=== PATIENT | male | born 1935 | race Caucasian/White ===

== ENCOUNTER 2022-10-23 13:34 | Inpatient (IN) | payer OTHER, MEDICARE, MEDICAID ==
[~2022-10-23] VITALS: Ht 172.7 cm; Wt 48.6 kg
[2022-10-23 14:01] LABS: BASOPHILS % (AUTO) 0.5 % (0-1); EOSINOPHILS % (AUTO) 0.3 % (0-6); HEMATOCRIT 43.1 % (42.0-52.0); HEMOGLOBIN 13.6 g/dl (14.0-17.9); LYMPHOCYTES # (AUTO) 0.9 X10'3 (1.1-4.8); MEAN CORPUSCULAR HEMOGLOBIN 29.2 PG (27.0-31.0); MEAN CORPUSCULAR HGB CONC 31.6 g/dL (33.0-36.5); MEAN CORPUSCULAR VOLUME 92.4 FL (78-98); MEAN PLATELET VOLUME 8.6 FL (7.4-10.4); MONOCYTES # (AUTO) 0.6 X10'3 (0-0.9); MONOCYTES % (AUTO) 8.7 % (2-12); NEUTROPHILS # (AUTO) 4.8 X10'3 (1.8-7.7); NEUTROPHILS % (AUTO) 75.5 % (42-75); PLATELET COUNT 317 X10'3 (140-440); RED BLOOD COUNT 4.67 X10'6 (4.70-6.10); WHITE BLOOD COUNT 6.3 X10'3 (4.5-11.0)
[2022-10-23 14:19] LABS: ALANINE AMINOTRANSFERASE 43 U/L (12-78); ALBUMIN 3.1 G/DL (3.4-5.0); ALBUMIN/GLOBULIN RATIO 0.8 (1.1-1.5); ALKALINE PHOSPHATASE 103 IU/L (46-116); ANION GAP 9 (8-16); ASPARTATE AMINO TRANSFERASE 37 U/L (10-37); BILIRUBIN,TOTAL 0.4 MG/DL (0.1-1.0); BLOOD UREA NITROGEN 33 MG/DL (7-18); CALCIUM 9.3 MG/DL (8.5-10.1); CHLORIDE 103 MMOL/L (99-107); GLUCOSE 150 MG/DL (70-104); POTASSIUM 4.8 MMOL/L (3.5-5.1); SODIUM 139 MMOL/L (135-145); TOTAL CARBON DIOXIDE 27.4 MMOL/L (24-32); TOTAL PROTEIN 6.8 G/DL (6.4-8.2)
[2022-10-23 14:27] LABS: BUN/CREATININE RATIO 28.9 (10.0-20.0); CREATININE 1.14 MG/DL (0.60-1.10); eGFR 61 ML/MIN
[2022-10-23] MEDS ORDERED: furosemide 10 MG/1 ML 10ml inj IV ONE (18:20)
[2022-10-23] MEDS ORDERED: furosemide 20 MG/2 ML vial IV ONE (18:25)
[2022-10-23] MEDS ORDERED: mag hydrox/Alum hydrox/simeth 30ml oral suspension PO PRN (19:55)
[2022-10-23] MEDS ORDERED: acetaminophen 325mg tablet PO PRN ×2 (19:55)
[2022-10-23] MEDS ORDERED: docusate sod 100mg capsule PO PRN (19:55)
[2022-10-23] MEDS ORDERED: PERFLUTREN PROTEIN-A MICROSPHR (Optison) 0.22 MG/ML 3ML VIAL IV ONE (19:55)
[2022-10-23] MEDS ORDERED: potassium Cl 20 mEq SR tablet PO PRN ×2 (19:55)
[2022-10-23] MEDS ORDERED: ondansetron/PF 4mg/2ml inj IV PRN (19:55)
[2022-10-23] MEDS ORDERED: magnesium 4gm in 100ml NS 100 ML IV PRN (19:55)
[2022-10-23] MEDS ORDERED: HYDROcodone/acetaminophen 10/325mg tab PO PRN (19:55)
[2022-10-23] MEDS ORDERED: HYDROcodone/acetaminophen 5mg/325mg tablet PO PRN (19:55)
[2022-10-23] MEDS ORDERED: potassium Cl 40MEQ/1/2NS 520ml 520 ML IV PRN (19:55)
[2022-10-23] MEDS: K and/or MAG REPLACEMENT MC SCH (20:00)
[2022-10-23] MEDS ORDERED: dronabinol 2.5mg capsule PO PRN ×2 (20:25→20:30)
[2022-10-23 20:26] LABS: ABG HCO3 27.3 mmol/L (22.0-26.0); ABG OXYGEN SATURATION 94.8 % (94-97); ABG PCO2 (T) 40.4 mmHg (35.0-48.0); ABG PO2 (T) 77.1 mmHg (75.0-100.0); FCOHb 0.8 % (0.0-3.9); FMetHb 0.3 % (0.0-1.5); FO2Hb 93.8 % (94-97); TOTAL HEMOGLOBIN 13.9 G/dl (14.0-17.9)
[2022-10-23] MEDS: budesonide 0.5mg/2ml UD nebule IH SCH (20:27)
[2022-10-23] MEDS: ipratropium/albuterol 3ml nebule NEB PRN (20:27)
[2022-10-23 20:36] LABS: CLARITY,URINE CLEAR (Clear); COLOR,URINE YELLOW (Yellow); GLUCOSE, URINE NEGATIVE (Neg); KETONES,URINE NEGATIVE (Neg); LEUKOCYTE ESTERASE ,URINE NEGATIVE (Neg); NITRITES, URINE NEGATIVE (Neg); OCCULT BLOOD,URINE NEGATIVE (Neg); PH,URINE 5.5 (4.8-8.0); PROTEIN,URINE NEGATIVE (Neg); UROBILINOGEN,URINE 0.2 E.U/dL (0.2-1.0)
[2022-10-23 20:40] LABS: UA COLLECTION TYPE CLN CATCH MIDSTREAM
[2022-10-23] MEDS ORDERED: PERFLUTREN PROTEIN-A MICROSPHR (Optison) 0.22 MG/ML 3ML VIAL IV PRN (21:15)
[2022-10-23] MEDS: enoxaparin 40mg/0.4ml syringe SQ SCH (21:29)
--- NOTE | 2022-10-23 21:33 | NUR ---
Pt evening meds given. Pt had something to eat. Pt given warm blankets and settled in for the night. Pt with no other needs at this time. Will continue to monitor.
[2022-10-24] MEDS ORDERED: digoxin 250mcg/ml 2ml ampule IV STA (02:29)
[2022-10-24] MEDS ORDERED: metoprolol tartrate 1mg/ml inj IV ONE (03:35)
--- NOTE | 2022-10-24 03:43 | NUR ---
Pt argumentative and refused metoprolol. Hospitalist in room and witnessed interaction. Physician aware pt refused medication.
[2022-10-24] MEDS: furosemide 20 MG/2 ML vial IV SCH ×2 (08:00→20:00)
[2022-10-24] MEDS: K and/or MAG REPLACEMENT MC SCH ×2 (08:00→20:00)
[2022-10-24 08:41] LABS: BASOPHILS # (AUTO) 0.1 X10'3 (0-0.2); EOSINOPHILS % (AUTO) 0.1 % (0-6); HEMATOCRIT 39.7 % (42.0-52.0); HEMOGLOBIN 12.9 g/dl (14.0-17.9); LYMPHOCYTES # (AUTO) 0.8 X10'3 (1.1-4.8); LYMPHOCYTES % (AUTO) 12.5 % (21-51); MEAN CORPUSCULAR HEMOGLOBIN 29.6 PG (27.0-31.0); MEAN CORPUSCULAR HGB CONC 32.5 g/dL (33.0-36.5); MEAN CORPUSCULAR VOLUME 90.9 FL (78-98); MEAN PLATELET VOLUME 8.5 FL (7.4-10.4); MONOCYTES # (AUTO) 0.6 X10'3 (0-0.9); MONOCYTES % (AUTO) 9.7 % (2-12); NEUTROPHILS # (AUTO) 4.6 X10'3 (1.8-7.7); NEUTROPHILS % (AUTO) 76.7 % (42-75); PLATELET COUNT 298 X10'3 (140-440); RED BLOOD COUNT 4.37 X10'6 (4.70-6.10); RED CELL DISTRIBUTION WIDTH 16.6 % (11.5-14.5)
[2022-10-24] MEDS: budesonide 0.5mg/2ml UD nebule IH SCH ×2 (08:46→19:08)
[2022-10-24] MEDS: ipratropium/albuterol 3ml nebule NEB PRN ×2 (08:46→19:08)
[2022-10-24] MEDS ORDERED: furosemide 20 MG/2 ML vial IV ONE ×2 (08:52→21:15)
[2022-10-24 09:03] LABS: ALANINE AMINOTRANSFERASE 41 U/L (12-78); ALBUMIN/GLOBULIN RATIO 0.9 (1.1-1.5); ALKALINE PHOSPHATASE 92 IU/L (46-116); ANION GAP 8 (8-16); ASPARTATE AMINO TRANSFERASE 28 U/L (10-37); BILIRUBIN,TOTAL 0.4 MG/DL (0.1-1.0); BLOOD UREA NITROGEN 39 MG/DL (7-18); BUN/CREATININE RATIO 26.9 (10.0-20.0); CALCIUM 9.1 MG/DL (8.5-10.1); CHLORIDE 104 MMOL/L (99-107); CREATININE 1.45 MG/DL (0.60-1.10); GLUCOSE 113 MG/DL (70-104); MAGNESIUM 2.3 MG/DL (1.5-2.4); POTASSIUM 5.2 MMOL/L (3.5-5.1); SODIUM 141 MMOL/L (135-145); TOTAL CARBON DIOXIDE 28.8 MMOL/L (24-32); TOTAL PROTEIN 6.5 G/DL (6.4-8.2); eGFR 46 ML/MIN
[2022-10-24 10:00] VITALS: BP 101/53
[2022-10-24 10:15] VITALS: BP 98/75
[2022-10-24 10:35] LABS: PLEURAL FLUID PH 7.414 (7.63-7.65)
[2022-10-24 10:36] LABS: BFSOURCE LEFT PLEURAL FLD
[2022-10-24 11:07] LABS: BF RBC COUNT 3350 /CU MM; BF WBC COUNT 1050 /CU MM (0-1000); BFAPPEAR CLOUDY; BFCOLOR YELLOW; BFVOLUME 60 ML
[2022-10-24 11:15] LABS: BF MESOTHELIAL CELLS FEW; LYMPHOCYTES,BODY FLUID 61 %; MONOCYTES,BODY FLUID 6 %; NEUTROPHILS,BODY FLUID 33 %
[2022-10-24 11:49] LABS: GLUCOSE,BODY FLUID 148 MG/DL; LDH,BODY FLUID 95 U/L; TOTAL PROTEIN,BODY FLUID 2.5 G/DL
[2022-10-24] MEDS ORDERED: ASPI-1265 PO (12:25)
[2022-10-24] MEDS ORDERED: CLOP75TA34 PO (12:25)
[2022-10-24] MEDS ORDERED: ATOR40TA PO (12:25)
[2022-10-24] MEDS ORDERED: FLUT16SP2 BOTHNARES (12:25)
[2022-10-24] MEDS ORDERED: FURO-150 PO (12:25)
[2022-10-24] MEDS ORDERED: CARV3.122 PO (12:25)
[2022-10-24] MEDS ORDERED: SACU1TAB PO (12:25)
[2022-10-24] MEDS ORDERED: OXYM30SP67 (12:25)
[2022-10-24] MEDS ORDERED: TIOT18CA3 PO (12:25)
[2022-10-24] MEDS ORDERED: SPIR25TA5 PO (12:25)
[2022-10-24] MEDS ORDERED: EMPA25TA PEG (12:25)
[2022-10-24] MEDS ORDERED: ALBU90AE INH (12:25)
[2022-10-24] MEDS ORDERED: MIRT-116 PO (12:25)
--- NOTE | 2022-10-24 12:35 | NUR ---
attempted to call report, nurse is unavailable, request that this RN call back in 5 minutes
[2022-10-24 13:15] VITALS: BP 110/74
[2022-10-24 18:00] VITALS: BP 103/74
--- NOTE | 2022-10-24 18:00 | NUR ---
Patient in room PCU 3025. I have received report from Jessica ANGEL and had the opportunity to ask questions and assume patient care.
[2022-10-24] MEDS: enoxaparin 40mg/0.4ml syringe SQ SCH (20:58)
[2022-10-24 22:00] VITALS: BP 111/72
--- NOTE | 2022-10-24 23:09 | NUR ---
PAGED DR. BARFIELD FOR SHI, JEANA HAS BEEN TACHYCARDIC FOR AN HOUR SO FAR, IN 140s. COULD WE HAVE SOMETHING FOR THAT? THANK YOU [facility] [id number] DR. BARFIELD ORDERED METOPTOLOL 5 MG IV
[2022-10-24] MEDS ORDERED: metoprolol tartrate 1mg/ml inj IV PRN (23:15)
--- NOTE | 2022-10-24 23:33 | NUR ---
PT IS STILL TACHYCARDIC @ >140 BUT HE IS REFUSING TO TAKE THE MEDICATION. I EXPLAINED THE BENEFITS OF TAKING MEDICATION, BUT PT IS NOT READY TO TAKE ANY HEART MEDICATION.
[2022-10-25 02:00] VITALS: BP 122/81
[2022-10-25 06:00] VITALS: BP 92/69
--- NOTE | 2022-10-25 06:56 | NUR ---
Patient in room PCU 8972H. I have received report from Cecelia ANGEL and had the opportunity to ask questions and assume patient care. Pt is laying low fowlers in bed, and is resting comfortably. Pt on 3L NC. No s/s of distress. No c/o pain at this time. 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 Will continue to monitor.
--- NOTE | 2022-10-25 07:04 | NUR ---
6Problems reprioritized. Patient report given, questions answered & plan of care reviewed with Mary ANGEL.
[2022-10-25 07:56] LABS: BASOPHILS % (AUTO) 0.3 % (0-1); EOSINOPHILS # (AUTO) 0.1 X10'3 (0-0.9); EOSINOPHILS % (AUTO) 1.1 % (0-6); HEMATOCRIT 38.6 % (42.0-52.0); HEMOGLOBIN 12.4 g/dl (14.0-17.9); LYMPHOCYTES % (AUTO) 17.7 % (21-51); MEAN CORPUSCULAR HEMOGLOBIN 29.2 PG (27.0-31.0); MEAN CORPUSCULAR HGB CONC 32.2 g/dL (33.0-36.5); MEAN CORPUSCULAR VOLUME 90.6 FL (78-98); MONOCYTES # (AUTO) 0.7 X10'3 (0-0.9); MONOCYTES % (AUTO) 11.5 % (2-12); NEUTROPHILS % (AUTO) 69.4 % (42-75); PLATELET COUNT 280 X10'3 (140-440); RED BLOOD COUNT 4.26 X10'6 (4.70-6.10); RED CELL DISTRIBUTION WIDTH 16.6 % (11.5-14.5); WHITE BLOOD COUNT 5.8 X10'3 (4.5-11.0)
[2022-10-25] MEDS: K and/or MAG REPLACEMENT MC SCH (08:00)
[2022-10-25] MEDS: furosemide 20 MG/2 ML vial IV SCH ×3 (08:00→08:36)
[2022-10-25 08:35] VITALS: BP_SYST 96
[2022-10-25 08:45] LABS: ALANINE AMINOTRANSFERASE 39 U/L (12-78); ALBUMIN 2.7 G/DL (3.4-5.0); ALBUMIN/GLOBULIN RATIO 0.8 (1.1-1.5); ALKALINE PHOSPHATASE 84 IU/L (46-116); ANION GAP 7 (8-16); ASPARTATE AMINO TRANSFERASE 28 U/L (10-37); BILIRUBIN,TOTAL 0.4 MG/DL (0.1-1.0); BLOOD UREA NITROGEN 44 MG/DL (7-18); BUN/CREATININE RATIO 32.8 (10.0-20.0); CALCIUM 9.1 MG/DL (8.5-10.1); CHLORIDE 104 MMOL/L (99-107); CREATININE 1.34 MG/DL (0.60-1.10); GLUCOSE 110 MG/DL (70-104); MAGNESIUM 2.2 MG/DL (1.5-2.4); SODIUM 142 MMOL/L (135-145); TOTAL CARBON DIOXIDE 31.1 MMOL/L (24-32); TOTAL PROTEIN 5.9 G/DL (6.4-8.2); eGFR 51 ML/MIN
[2022-10-25] MEDS: budesonide 0.5mg/2ml UD nebule IH SCH (08:49)
[2022-10-25 11:13] LABS: HBSAG SCREEN Negative (Negative); HEP B CORE AB, TOT Positive (Negative)
--- NOTE | 2022-10-25 12:04 | NUR ---
Noted pt with a low BMI of 16.3 using wt of 48.64 kg though no documentation of how wt was obtained and no wt hx in EMR. Pt denies wt loss or decreased appetite per malnutrition risk screen with RN. Currently on a heart healthy diet and eating well, documented with 25% PO intake of first meal however up to 75-100% PO intake the following two meals. Pt with no documented decrease in muscle strength or edema. No nutrition intervention implemented at this time. Will continue to follow. Addendum: 10/25/22 at [address] Amended: Links added.
--- NOTE | 2022-10-25 13:40 | NUR ---
Pt Dc'd tp personal vehicle, Mohini DONOVAN worker is driving. VSS, Pt afebrile, no isues with medications. PIV to RFA removed, tip intact no c/o pain with removal. Discharge education provided, All discharge questions answered. All belongings left with Pt.
== END 2022-10-25 13:38 | disposition home or self-care (01) | DRG 189 ==
LOC: ER 13:35 → ED HOLD 20:03 → PCU 3S 10-24 12:59
PROVIDERS: ADMIT Family Medicine; ATTEND Family Medicine
PROC: 0W9B3ZX Drainage of Left Pleural Cavity, Percutaneous Approach, Diagnostic (ICD-10-PCS; principal; 2022-10-24)
DX: J96.20 Acute and chronic respiratory failure, unspecified whether with hypoxia or hypercapnia (principal); I50.23 Acute on chronic systolic (congestive) heart failure; J44.1 Chronic obstructive pulmonary disease with (acute) exacerbation; J91.8 Pleural effusion in other conditions classified elsewhere; Z66 Do not resuscitate; E87.5 Hyperkalemia; N28.9 Disorder of kidney and ureter, unspecified; E11.9 Type 2 diabetes mellitus without complications; I25.10 Atherosclerotic heart disease of native coronary artery without angina pectoris; Z82.49 Family history of ischemic heart disease and other diseases of the circulatory system; Z86.16 Personal history of COVID-19; Z95.5 Presence of coronary angioplasty implant and graft; Z87.891 Personal history of nicotine dependence; I48.91 Unspecified atrial fibrillation
CPT/HCPCS: 32555; 36415; 36600; 71045; 80053; 81003; 82803; 82945; 83615; 83735; 83880; 83986; 84145; 84157; 84484; 85018; 85025; 86704; 86705; 86706; 87070; 87075; 87081; 87340; 89051; 93005; 93306; 94640; 94760; 99285; A4615; G0378; J1160; J1650; J1940; J3490; Q0167

== ENCOUNTER 2025-04-12 13:51 | Inpatient (IN) | payer OTHER, MEDICARE ==
[~2025-04-12] VITALS: Ht 172.7 cm; Wt 51.0 kg
[~2025-04-12 13:51] MED LIST: ALBU90AE INH; ASPI-1265 PO; ATOR40TA PO; CARV3.122 PO; CLOP75TA34 PO; EMPA25TA PEG; FLUT16SP2 BOTHNARES; FURO-150 PO; MIRT-142 PO; OXYM30SP67; SACU1TAB PO; SPIR25TA5 PO; TIOT18CA3 PO
--- NOTE | 2025-04-12 14:04 | ELECTROCARDIOGRAPH REPORT ---
[facility] Test Date: 2025-04-12 Test Time: 13:58:14 Pat Name: JEANA SHI Department: EMERGENCY ROOM Room: [place] [address] Gender: M Credit Manager: KATHI : 1935 Requested By: VLADIMIR PARISI Order Number: [id number] Reading MD: Dr. Ferny Schreiber Measurements Intervals [place] Rate: 73 P: 81 [place]: 192 QRS: -74 QRSD: 175 T: 94 QT: 467 QTc: 515 Interpretive Statements Sinus rhythm Left bundle branch block Electronically Signed On 04-13-2025 21:40:[address] Ferny Schreiber Please click the below link to view image of tracing.
[2025-04-12 14:36] LABS: MEAN PLATELET VOLUME 9.9 FL (7.4-10.4); RED CELL DISTRIBUTION WIDTH 14.1 % (11.5-14.5)
--- NOTE | 2025-04-12 14:46 | RADIOLOGY REPORT ---
CHEST RADIOGRAPH Indication: CP Technique: DI CHEST,SINGLE VIEW COMPARISON: None FINDINGS: 2 The cardiac silhouette is enlarged. The lungs demonstrate bilateral patchy airspace opacities, most pronounced in the mid to lower lungs. The pulmonary vasculature is prominent. Small to moderate left and small right pleural effusions. There is no pneumothorax. Mitral clip. Aortic atherosclerotic dise ase. IMPRESSION: Cardiomegaly with pulmonary vascular congestion and bilateral patchy airspace opacities.
[2025-04-12 15:02] LABS: CREATININE 1.71 MG/DL (0.60-1.10); TOTAL CARBON DIOXIDE 30.1 MMOL/L (24-32); eCRCL 22 ML/MIN; eGFR 38 ML/MIN
[2025-04-12 15:05] LABS: PRO BRAIN NATRIURETIC PEPTIDE > 30000 PG/ML (0-450)
--- NOTE | 2025-04-12 16:01 | Physician Documentation ---
History of Present Illness ~ Chief Complaint: Shortness of Breath Stated Complaint: SOB Time Seen by MD: 14:26 OK to notify your PCP?: Yes Primary Medical Doctor: CLEMENCIA Mode of Arrival: EMS HPI 89-year-old male patient with a history of COPD on home oxygen 4 L per nasal cannula, CHF, pulmonary hypertension who lives alone called the 911 because he is feeling weak and having progressive shortness a breath for 3 to 4 days. Patient denies any chest pain nausea vomiting diarrhea fever or chills. The patient denies any trauma. The patient denies any abdominal pain. Medication Reconciliation Allergies: Coded Allergies: No Known Allergies (Unverified , 04/12/25) Scheduled Aspirin (Aspirin), 1 TAB PO DAILY, (Reported) Atorvastatin Calcium* (Lipitor*), 1 TABLET PO HS, (Reported) Carvedilol (Carvedilol), 1 TAB PO Q12H, (Reported) Clopidogrel Bisulfate (Clopidogrel), 1 TABLET PO DAILY, (Reported) Empagliflozin (Jardiance), 0.5 TAB PEG DAILY, (Reported) Fluticasone Propionate (Flonase), 2 SPRAYS BOTHNARES DAILY, (Reported) Furosemide* (Lasix*), 1 TAB PO DAILY, (Reported) Mirtazapine (Remeron), 1 TAB PO HS, (Reported) Sacubitril/Valsartan (Entresto 24 mg-26 mg Tablet), 1 TAB PO BID, (Reported) Spironolactone (Spironolactone), 1 TAB PO DAILY, (Reported) Tiotropium [place] (Spiriva), 2 SPRAYS PO DAILY, (Reported) Scheduled PRN Albuterol Sulfate (Proair Respiclick), 2 PUFFS INH Q4HPRN PRN for shortness of breath, (Reported) Oxymetazoline HCl (Nasal [place]), 2 SPRAYS NA Q6H PRN for NASAL CONGESTION, ( Reported) Past Medical History Past Medical History: Congestive Heart Failure, COPD, Diabetes Patient History: FH: CHF (congestive heart failure) MOTHER Review of Systems ROS As stated above in the HPI, otherwise all systems are reviewed and negative. Physical Exam Vital Signs: Temperature: 97.2, Source: Temporal, Heart Rate: 71, Respiratory Rate: 17, BP: 152/81, Pulse Oximetry: 95, Weight: 51.000 Oxygen Flow Rate: 4.0 Physical Exam Reviewed vital signs and they are well within normal range. Const: The patient is pretty much unkempt thin built and not in distress Head: Atraumatic Eyes: Normal Conjunctiva ENT: Normal External Ears, Nose and Mouth. Moist mucous membranes Neck: Full range of motion. No meningismus Resp: Diminished breath sounds bilaterally. Normal work of breathing Cardio: Regular rate and rhythm, no murmurs. Skin well perfused Abd: Soft, non-tender, non-distended. Normal bowel sounds. No rebound or guarding Skin: No petechiae or rashes. Warm and dry Back: No midline or flank tenderness Ext: No cyanosis, or edema Neuro: Awake and alert Psych: Normal Mood and Affect Progress Results/Orders Results/Orders Orders - VLADIMIR PARISI MD Chest,Single View (04/12/25 14:02) Monitor (04/12/25 14:02) Saline Lock (04/12/25 14:02) Oxygen (04/12/25 14:02) Page Hospitalist (04/12/25 16:40) Mechanical Soft (04/13/25 Dinner) Heart Healthy Diet (04/13/25 Breakfast) Completed Orders - VLADIMIR PARISI MD Chest,Single View (04/12/25 14:02) Cbc/Diff (04/12/25 14:02) BMP (04/12/25 14:02) PBNP (04/12/25 14:02) Electrocardiogram (04/12/25 14:02) Hs Troponin I W Calculations (04/12/25 14:02) Hs Troponin I W Calculations (04/12/25 16:02) Hs Troponin I W Calculations (04/12/25 17:02) MG (04/12/25 14:21) Vital Signs 04/12/25 04/12/25 04/12/25 04/12/25 13:57 14:24 14:25 14:26 Temp 97.2 Pulse 74 71 Resp 24 14 17 B/P (MAP) 113/70 152/81 (104) Pulse Ox 93 95 95 O2 Delivery Nasal Cannula* O2 Flow Rate 4.0 4 4.0 FiO2 36 04/12/25 16:04 Pulse 71 Resp 18 B/P (MAP) 109/66 (80) Pulse Ox 97 O2 Flow Rate 2.0 Laboratory Tests Test 04/12/25 14:21 04/12/25 16:05 White Blood Count 8.7 Red Blood Count 3.92 L Hemoglobin 12.2 L Hematocrit 36.5 L Mean Corpuscular Volume 93.3 Mean Corpuscular Hemoglobin 31.3 H Mean Corpuscular Hemoglobin Concent 33.5 Red Cell Distribution Width 14.1 Platelet Count 175 Mean Platelet Volume 9.9 Neutrophils (%) (Auto) 84.0 H Lymphocytes (%) (Auto) 6.0 L Monocytes (%) (Auto) 9.4 Eosinophils (%) (Auto) 0.3 Basophils (%) (Auto) 0.3 Neutrophils # (Auto) 7.3 Lymphocytes # (Auto) 0.5 L Monocytes # (Auto) 0.8 Eosinophils # (Auto) 0.0 Basophils # (Auto) 0.0 CBC Comment Sodium Level 139 Potassium Level 5.4 H Chloride Level 105 Carbon Dioxide Level 30.1 Anion Gap 4 L Blood Urea Nitrogen 63 H Creatinine 1.71 H Estimated GFR/1.73 m2 38 BUN/Creatinine Ratio 36.8 H Glucose Level 89 Calcium Level 8.6 Magnesium Level 2.8 H Troponin I High Sensitivity 69 64 Pro-B-Type Natriuretic Peptide > 02187 H Albumin 3.0 L Chemistry Comments Troponin I High Sens Percent Delta 7 Troponin I Hi Sens Absolute Change -5 Medical Decision Making Findings ER Course/Med. Decision Making REVIEW of RECORD(S): Previous medical records here and/or external medical records, such as that provided directly by the patient, by EMS and/or outside medical facilities, if available, were reviewed. COMORBIDITIES CHF, COPD MDM During the physical examination, the findings suggestive of acute life- threatening condition such as JVD, tracheal deviation, acidotic breathing, noisy stridorous breath sounds, pulses paradoxus, muffled heart sounds, unequal breath sounds, abdominal rigidity and rebound tenderness, focal neurological deficits, cool clammy skin, severe hypotension, severe tachycardia or bradycardia are absent. Patient presenting for progressive shortness a breath and lots of appetite. . Vital signs reviewed. Patient is hemodynamically stable and does not meet SIRS criteria. Patient appears nontoxic on exam. Physical examination shows signs of dehydration. CBC showed WBC 8.7 H and H12.2 36.5 and platelets 175. BUN is 63 creatinine 1[place] [address]. Chest x-ray shows cardiomegaly with pulmonary edema mild. Patient's 12 lead EKG does not reveal any ischemic changes. TREATMENT/DISPOSITION: The patient's presentation is most consistent with exacerbation of CHF and COPD with dehydration Prior to discharge I independently reviewed the patients past medical history, clinical risk factors, comorbidities, and social determinants of health and diagnostic studies. The patient appears to be a safe discharge home with close outpatient PCP follow-up I had extensive discussion with patient regarding management, disposition and follow up. Potential symptom etiology was discussed, and shared decision making occurred. They will return immediately if symptoms worsen, do not improve, or they have any further concerns. Prior to discharge all questions were addressed. The patient is aware that the purpose of this visit was to screen for an acute medical emergency requiring emergent stabilization. Chronic and occult conditions, including malignancies, have not been ruled out. If patient is unable to arrange follow-up as stated in the discharge instructions and further discussed with the patient directly, or their symptoms worsen/become more concerning, they are to return to the ER for reassessment immediately. Prior to leaving the department, the patient has a plan for discharge, has decision making capacity, and acknowledges an understanding of the verbal and written discharge instructions. SOCIAL DETERMINANTS: Patient demonstrates no obvious challenges to following up as an outpatient although did consider whether patient had any barriers to access care including homelessness, Food insecurity, Mental health, Substance abuse, Disabilities, Limited access to medical care, Difficulty finding transport, Insurance issues, Refusal of care or testing due to cost concerns. MEDICAL SCREENING: I have discussed with the patient the non-definitive nature of the emergency screening exam, diagnosis and the possibility of a variety of conditions which may present in atypically benign fashion and stressed the importance of close follow-up for definitive diagnosis and treatment. We discussed signs and symptoms that should be watched for which might indicate a more serious or new condition that would benefit from emergency reevaluation and the patient has verbalized understanding to this and my other detailed discharge instructions and promises compliance. I have referred him back to his primary physician of course for a more detailed evaluation and more definitive diagnoses. DISCLAIMER: Inadvertent spelling and grammatical errors are likely due to EMR/dictation software use and do not reflect on the overall quality of patient care. Note that the electronic time recorded on this note does not necessarily reflect the actual time of the patient encounter. Departure Disposition: ADMITTED INPATIENT Impression: Primary Impression: Acute on chronic diastolic heart failure Additional Impressions: Chronic obstructive pulmonary disease Dehydration Condition: Guarded Referrals: NO PRIMARY CARE PROVIDER (PCP) Signature Scribe Signature: None Attestation: My dictation VLADIMIR PARISI MD Apr 12, 2025 16:01
[2025-04-12] MEDS ORDERED: potassium Cl 20 mEq SR tablet PO PRN ×2 (17:25)
[2025-04-12] MEDS ORDERED: magnesium Cl slow-release 64mg tablet PO PRN (17:25)
[2025-04-12] MEDS ORDERED: magnesium hydroxide 30ml (MOM) UD suspension PO PRN (17:25)
[2025-04-12] MEDS ORDERED: ondansetron/PF 4mg/2ml inj IV PRN (17:25)
[2025-04-12] MEDS ORDERED: mag hydrox/Alum hydrox/simeth 30ml oral suspension PO PRN (17:25)
[2025-04-12] MEDS ORDERED: magnesium sulf-water 4G/100mL 100 ML IV PRN (17:25)
[2025-04-12] MEDS ORDERED: magnesium sulf-water 2g/50mL 50 ML IV PRN (17:25)
[2025-04-12] MEDS ORDERED: potassium Cl 40MEQ/1/2NS 520ml 520 ML IV PRN (17:25)
[2025-04-12] MEDS ORDERED: morphine 4 MG/ML inj SYRINge IV PRN (17:25)
[2025-04-12] MEDS ORDERED: albuterol 2.5 MG/3 ML nebule NEB PRN (18:20)
--- NOTE | 2025-04-12 18:29 | HISTORY AND PHYSICAL-Residence ---
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 Patient gets short of breath with less than 10 m of walking, he denies any chest pain, palpitation, orthopnea, PND, any leg swelling Patient also complained chronic constipation from past 3 days and he has not been eating Patient denied any fever, chills, nausea or vomiting Allergies: Coded Allergies: No Known Allergies (Unverified , 04/12/25) Home Medications Home Medications Active Reported Spiriva (Tiotropium [place]) 18 Mcg Cap.w.dev 2 Sprays PO DAILY Spironolactone 25 Mg Tablet 1 Tab PO DAILY 30 Days Nasal Prole (Oxymetazoline HCl) 30 Ml Prole 2 Sprays NA Q6H PRN Entresto 24 mg-26 mg Tablet (Sacubitril/Valsartan) 1 Each Tablet 1 Tab PO BID Remeron (Mirtazapine) 15 Mg Tablet 1 Tab PO HS 30 Days Lasix* (Furosemide) 20 Mg Tablet 1 Tab PO DAILY Flonase (Fluticasone Propionate) 16 Gm Prole.susp 2 Sprays BOTHNARES DAILY 30 Days Jardiance (Empagliflozin) 25 Mg Tablet 0.5 Tab PEG DAILY Clopidogrel (Clopidogrel Bisulfate) 75 Mg Tablet 1 Tablet PO DAILY Do not stop medication unless instructed by prescriber. 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[facility] [employer] Able to ambulate without walker in his own trailer Nonalcoholic Quit smoking 50 years ago and smokes vape Denies any drug use but possible methamphetamine use Code status-DNR ROS ROS Constitutional: No fever, chills, dizziness, weakness, Eyes: No pain, erythema, discharge ENT: No sore throat, epistaxis, tinnitus Cardiovascular: No chest pain, No current palpitations, syncope, lower extremity edema, paroxysmal nocturnal dyspnea Respiratory: Shortness of breaths , No cough, hemoptysis Gastrointestinal: Reports decreased appetite and chronic constipation denies any nausea vomiting Genitourinary: No frequency,urgency,No nocturia, hematuria or dysuria Musculoskeletal: Denies any symptoms Integumentary: No change in skin, hair, nails. No swelling, bruising, abrasions Neurologic: Patient is alert oriented x4, responding to the questions Normal motor strength and sensation in bilateral upper and lower extremity Exam Vitals: Vital Signs Date Time Temp Pulse Resp B/P (MAP) Pulse Ox O2 Delivery O2 Flow Rate FiO2 04/12/25 17:54 81 19 104/65 (78) 95 0 04/12/25 14:24 Nasal Cannula* 36 04/12/25 13:57 97.2 General: Patient is,alert, orientedx4 HEENT: Normocephalic and atraumatic, Oral and nasal mucosa is moist. No visible head injuries Neck: Trachea is in midline. No masses or JVD Chest: Bilateral crackles are heard on auscultation, no rhonchi Cardiovascular: Regular rate and regular rhythm. S1-S2 normal. No rubs or murmurs Abdomen: No tenderness present. 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: Patient is alert , awake, speech is coarse CN II-XII - intact Normal Tone and Bulk in all extremities Sensation is intact in all extremities Co-ordination is intact Skin: warn and dry Diagnostic Data Last Recorded Lab Results: 04/12/25 1421 04/12/25 1421 Advance Care Planning Advanced Care plannin - 30 Minutes Additional Plan 89 years old male with past medical history congestive heart failure, COPD, coronary artery disease he is currently evaluated acute on chronic congestive heart failure, acute kidney injury, acute hypoxemic respiratory failure Acute on chronic systolic heart failure with reduced ejection of 10%(2022) Vitals stable, SpO2 95 on 4 L oxygen Troponin are negative, proBNP >52464 Chest [id number] with pulmonary vascular congestion and bilateral patchy airspace opacities Plan: Follow-up with the echocardiogram Started furosemide 40 mg IV b.i.d. Strict input and output monitoring Follow-up with urine tox Acute hypoxemic respiratory failure Possibly due to COPD acute exacerbation/congestive heart failure Patient uses 4 L oxygen at home Patient currently maintaining SpO2 95 on 4 L oxygen Patient vitals are stable Chest x-ray shows Cardiomegaly with pulmonary vascular congestion and bilateral patchy airspace opacities Plan: Started DuoNeb 3 ml q.4h p.r.n. and albuterol 2.5 mg/3 mL q.2h p.r.n. Given methylprednisone 125 mg IV once Given azithromycin 500 mg IV once Given ceftriaxone 1 g IV daily -day 1 Ordered Incentive spirometry and respiratory therapy q.1h Acute kidney injury on chronic kidney disease stage IIIB Possible prerenal acute kidney injury Patient baseline creatinine is 1.3 BUN-63, creatinine-1.71, BUN/creatinine-36.8 Plan Follow-up with urine solutes Patient currently diuresing and on strict input and output monitoring Follow-up with CMP Hyperkalemia Patient potassium level is 5.4 Patient is currently diuresing with Lasix 40 mg IV b.i.d. and on albuterol History of coronary artery disease Continue home med once med rec is completed Code Status: DNR Diet-heart healthy diet DVT prophylaxis: SCDs/heparin subQ Line/tube: Peripheral PT: Order Prognosis: Guarded Disposition: Patient will be monitored in PCU under telemetry with strict input and output monitoring Gaurav Alexis PGY1-Internal Medicine Resident Date of Service: Apr 12, 2025 Billing Provider: LA[place] B[place] MD Common Visit Codes: 57193-YRISBSP INP/OBS CARE (HIGH) Secondary Visit Codes: [id number] CARE PLAN 30 MINUTES GAURAV ALEXIS, RES Apr 12, 2025 18:28 LA[place] BUSH MD Apr 13, 2025 08:55
[2025-04-12] MEDS: PERFLUTREN PROTEIN-A MICROSPHR (Optison) 0.22 MG/ML 3ML VIAL IV ONE (19:01)
[2025-04-12] MEDS: azithromycin/NS 500mg/250ml 250 ML IV ONE (19:06)
[2025-04-12] MEDS: CefTRIAXone/D5W-Rocephin 1gm 50 ML IV SCH (19:08)
[2025-04-12 19:33] VITALS: PULSE 78; RESP 18; O2SAT 93
[2025-04-12] MEDS: ipratropium/albuterol 3ml nebule NEB SCH (19:35)
[2025-04-12 19:39] VITALS: PULSE 78; RESP 18
[2025-04-12] MEDS: K and/or MAG REPLACEMENT MC SCH (20:10)
[2025-04-12 21:02] LABS: URINE AMPHETAMINE SCREEN NEGATIVE (Neg); URINE BARBITUATE SCREEN NEGATIVE (Neg); URINE BENZODIAZEPINES SCREEN NEGATIVE (Neg); URINE CANNABINOID SCREEN POSITIVE (Neg); URINE COCAINE SCREEN NEGATIVE (Neg); URINE METHADONE SCREEN NEGATIVE (Neg); URINE OPIATE SCREEN NEGATIVE (Neg); URINE PHENCYCLIDINE SCREEN NEGATIVE (Neg)
[2025-04-12] MEDS: docusate sod 100mg capsule PO SCH (21:04)
[2025-04-12] MEDS: heparin, porcine 5000 units/ml vial SQ SCH (21:05)
[2025-04-12 21:26] LABS: LEUKOCYTE ESTERASE ,URINE SMALL (Neg); NITRITES, URINE NEGATIVE (Neg); OCCULT BLOOD,URINE TRACE-INTACT (Neg)
[2025-04-12 21:56] LABS: OSMOLALITY UA 688.0 MOSM/K (50-1400)
[2025-04-12 22:06] LABS: UA COLLECTION TYPE NON-SPECIFIED
[2025-04-12 22:09] LABS: SQUAMOUS EPITHELIAL CELL,UR NONE SEEN /LPF (FEW)
[2025-04-12 22:10] LABS: CAL OXALATE CRYSTALS FEW /HPF (NEGATIVE)
[2025-04-12 22:11] LABS: CREATININE,URINE RANDOM 90.0 MG/DL; TOTAL PROTEIN,URINE RANDOM 22.6 MG/DL
[2025-04-12 23:19] VITALS: PULSE 101; RESP 18; O2SAT 99
[2025-04-12 23:27] VITALS: PULSE 101; RESP 18
[2025-04-12 23:34] LABS: UA EOSINOPHILS NO EOS /HPF
[2025-04-13] VITALS (11 sets, daily range): BP systolic 103–120; BP diastolic 64–80; PULSE 62–103; RESP 12–22; TEMP 97.3–97.5; O2SAT 63–98
[2025-04-13 00:50] LABS: MEAN PLATELET VOLUME 9.9 FL (7.4-10.4); RED CELL DISTRIBUTION WIDTH 14.2 % (11.5-14.5)
[2025-04-13 01:07] LABS: CREATININE 1.80 MG/DL (0.60-1.10); TOTAL CARBON DIOXIDE 31.1 MMOL/L (24-32); eCRCL 20 ML/MIN; eGFR 36 ML/MIN
--- NOTE | 2025-04-13 01:20 | ELECTROCARDIOGRAPH REPORT ---
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 Ferny Schreiber Measurements Intervals [place] Rate: 68 P: 85 [place]: 195 QRS: -73 QRSD: 181 T: 121 QT: 473 QTc: 504 Interpretive Statements Sinus rhythm Left bundle branch block Baseline wander in lead(s) II,III,aVF Electronically Signed On 04-13-2025 21:39:[address] Ferny Schreiber Please click the below link to view image of tracing.
[2025-04-13] MEDS: methylPREDNISolone sod succ/PF 40mg inj. IV SCH (02:35)
[2025-04-13] MEDS: calcium chloride 100 MG/1 ML inj IV ONE ×2 (02:36→08:00)
[2025-04-13] MEDS: dextrose 50%-water 50ml dispensing syringe IV ONE ×2 (02:36→08:00)
[2025-04-13] MEDS: insulin regular, human 10 units/0.1 ml syringe IV ONE ×2 (02:37→08:00)
[2025-04-13 07:56] LABS: CREATININE 1.97 MG/DL (0.60-1.10); TOTAL CARBON DIOXIDE 31.1 MMOL/L (24-32); eCRCL 19 ML/MIN; eGFR 32 ML/MIN
[2025-04-13] MEDS ORDERED: SODIUM ZIRCONIUM CYCLOSILICATE 10 GM POWD.PACK PO SCH (08:00)
[2025-04-13] MEDS ORDERED: DOBUTamine-DoBUTrex 500mg/D5W 250 ML IV SCH (08:05)
[2025-04-13] MEDS ORDERED: morphine 10mg/0.5ml (conc. morphine) oral syringe PO PRN ×2 (12:00→12:15)
[2025-04-13] MEDS ORDERED: ondansetron 4mg rapidly disintigrating tab PO PRN (12:00)
[2025-04-13] MEDS ORDERED: diazepam inj 5 MG/ML inj. IV PRN (12:00)
[2025-04-13] MEDS ORDERED: morphine ORAL 5MG/0.25 ML (Conc. morphine) oral syringe PO PRN (12:00)
--- NOTE | 2025-04-13 14:34 | DISCHARGE SUMMARY ---
Discharge Summary Providers to CC ~ Discharge Summary Admission Diagnosis: Acute HFrEF, [place] Hospital Course DATE OF ADMISSION: 04/12/25 DATE OF DISCHARGE: 04/13/25 Discharge Diagnosis\Comment: Acute decompensated systolic heart failure Acute hypoxemic respiratory failure 2/2 above Prerenal [place] 2/2 CHF/vasomotor nephropathy Hyperkalemia 2/2 [place] Hx of CAD Generalized weakness Left AMA Operations\Procedures: None Consultants: None Complications: Left AMA Condition on DC: Unstable Discharge Summary: Patient was examined at bedside in am. Patient is A&Ox3. Patient wishes for DNR w/ comfort care. Code status changed accordingly. Patient has not been set up with hospice care. Patient left AMA despite explaining risks associated with leaving AMA. I spent a total of 35 minutes discussing Advanced Care Planning measures with the patient. 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
--- NOTE | 2025-04-14 19:28 | CARDIOLOGY REPORT ---
APPROVED REPORT EXAM: Comprehensive 2D, Doppler, and color-flow Echocardiogram. Patient Location: [facility] Blood Pressure: 104/65 mmHg Heart Rate: 106 bpm Indications Congestive Heart Failure Shortness of Breath Coronary Artery Disease Stents x 2 (2022) MV Clip ( 2022 - per patient) TEST DESK OPERATOR: Kelley Prince MD (PA) Previous ECHO: 10/24/22, [facility], EF: 10, mod LAE, PFO present; m NADIR; - SOPHIA: 1.53; GRAD: 8 / 5; PKV: 1.45; MV GRAD: / ; m MR 2D Dimensions LA Diam 3.9 cm IVSd 0.8 (0.7-1.1cm) LVDd 5.3 cm PWd 1.0 (0.7-1.1cm) IVSs 1.2 (0.8-1.2cm) LVDs 4.7 (2.5-4.0cm) PWs 0.9 (0.8-1.2cm) LVOT Diameter 2.19 (1.8-2.4cm) LVEF(%) 24.7 (>50%) Ao Asc Diam. 3.04 cm IVC 20.38 mm FS (%) 11.5 % SV 33.4 ml CO 3.7 L/min M-Mode Dimensions Left Atrium(MM) 4.13 (2.5-4.0cm) Aortic Root 2.74 (2.2-3.7cm) Aortic Cusp Exc 0.96 (1.5-2.0cm) Aortic Valve AoV Peak Rohan. 191.4 cm/s AoV VTI 33.4 cm AO Peak GR. 14.7 mmHg AO Mean GR. 7 mmHg LVOT VTI 11.05 cm LVOT Peak Rohan. 110.6 cm/s SOPHIA(VTI)/BSA 1.24 cm2/m2 SOPHIA (VTI) 1.24 cm2 AV DI 0.33 % Mitral Valve MV Peak Gr. 10 mmHg MV Mean Gr. 3 mmHg MV PHT 52 ms MVA (PHT) 4.23 cm2 MV VMax 158.6 cm/s MV VMean 69.6 cm/s MVA VTI 1.62 cm2 MV VTI 25.6 cm TDI Lateral E' P. V 9.45 cm/s Tricuspid Valve TR P. Velocity 209 cm/s RAP ESTIMATE 10 mmHg TR Peak Gr. 17 mmHg RVSP 27 mmHg LEFT VENTRICLE Normal LV size and wall thickness. Overall systolic function is severely decreased (known). LVEF is approximately 20%. RIGHT VENTRICLE Right ventricle is mildly dilated with adequate function. ATRIA Left atrium is mildly dilated. Left to right PFO is noted by spectral and color flow Doppler (known). 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 SOPHIA is measured at 1.24 cmsq. Peak / mean gradients of 15 / 7 mmHG. Peak velocity is measured at 1.91 m/sec. Stenosis severity is likely severe, but fails to meet criteria due to low flow / volume, low gradient conditions. Trivial insufficiency. MITRAL VALVE Mitral Valve Clip present. Peak / mean gradients are 10 / 3 mmHg. MV leaflet are thickened without stenosis. Mild regurgitation. TRICUSPID VALVE The tricuspid valve is normal in structure with mild regurgitation. PULMONIC VALVE The pulmonary valve is normal in structure with phyiologic insufficiency. GREAT VESSELS The aortic root is normal in size. The IVC is normal in size and collapses >50% with inspiration. PERICARDIUM Normal pericardium. No effusion. Anterior epicardial fat pad is present. Pleural effusion present. Other Information Study Quality: Adequate Conclusion Normal LV size and wall thickness. Overall systolic function is severely decreased (known). LVEF is approximately 20%. Right ventricle is mildly dilated with adequate function. Left atrium is mildly dilated. Left to right PFO is noted by spectral and color flow Doppler (known). 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 SOPHIA is measured at 1.24 cmsq. Peak / mean gradients of 15 / 7 mmHG. Peak velocity is measured at 1.91 m/sec. Stenosis severity is likely severe, but fails to meet criteria due to low flow / volume, low gradient conditions. Trivial insufficiency. Mitral Valve Clip present. Peak / mean gradients are 10 / 3 mmHg. MV leaflet are thickened without stenosis. Mild regurgitation. The tricuspid valve is normal in structure with mild regurgitation. Normal pericardium. No effusion. Anterior epicardial fat pad is present.
== END 2025-04-13 14:00 | disposition left against medical advice (07) | DRG 291 ==
LOC: ER 13:52 → ED HOLD 17:11 → PCU 3S 04-13 02:08
PROVIDERS: ADMIT Internal Medicine; ATTEND Internal Medicine
DX: I50.43 Acute on chronic combined systolic (congestive) and diastolic (congestive) heart failure (principal); J96.01 Acute respiratory failure with hypoxia; N17.0 Acute kidney failure with tubular necrosis; Z66 Do not resuscitate; Z53.21 Procedure and treatment not carried out due to patient leaving prior to being seen by health care provider; E11.9 Type 2 diabetes mellitus without complications; E86.0 Dehydration; N18.30 Chronic kidney disease, stage 3 unspecified; Z60.2 Problems related to living alone; J44.9 Chronic obstructive pulmonary disease, unspecified; E87.5 Hyperkalemia; I25.10 Atherosclerotic heart disease of native coronary artery without angina pectoris; Z51.5 Encounter for palliative care; Z79.82 Long term (current) use of aspirin; Z79.01 Long term (current) use of anticoagulants; Z79.899 Other long term (current) drug therapy
CPT/HCPCS: 36415; 71045; 80048; 80053; 80305; 81001; 82570; 83735; 83880; 83935; 84133; 84156; 84300; 84484; 85025; 87081; 87088; 87207; 93005; 93306; 94640; 94760; G0378; J0456; J0696; J1644; J1815; J2919; J3490; J7040